=== PATIENT | female | born 1985 | race Native Hawaiian/Other Pacific Islander ===

== ENCOUNTER 2018-01-31 18:18 | Emergency (ER) | payer OTHER ==
[2018-01-31] MEDS ORDERED: Sodium Chloride 0.9% 1,000 ML IV ONE (19:52)
--- NOTE | 2018-01-31 19:52 | C.PDOC ---
History Of Present Illness Patient is a 32 y/o female, , who presents to the ED with a complaint of heavy vaginal bleeding and abdominal pain. Patient reports to have seen PMD for symptoms and was informed of miscarriage secondary to absent heart. Patient denies any fever or chills. Patient describes abdominal pain as severe abdominal cramping, 6/10. No other physical complaints at this time. Time Seen by Provider: 01/31/18 19:52 Chief Complaint (Nursing): Female Genitourinary History Per: Patient History/Exam Limitations: no limitations Onset/Duration Of Symptoms: Hrs Current Symptoms Are (Timing): Still Present Severity: Severe Pain Scale Rating Of: 6 Quality Of Discomfort: Cramping Associated Symptoms: Urinary Symptoms (heavy vaginal bleeding). denies: Fever, Chills Recent travel outside of the [place]: No Past Medical History Reviewed: Historical Data, Nursing Documentation, Vital Signs Vital Signs: Last Vital Signs Temp 98 F 01/31/18 18:20 Pulse 75 01/31/18 20:09 Resp 18 01/31/18 20:09 BP 114/71 01/31/18 20:09 Pulse Ox 100 01/31/18 22:29 - Medical History PMH: Anemia, Hypothyroidism Surgical History: No Surg Hx Family History: States: No Known Family Hx - Social History Hx Tobacco Use: No Hx Alcohol Use: No Hx Substance Use: No - Immunization History Hx Influenza Vaccination: No Review Of Systems Constitutional: Negative for: Fever, Chills Gastrointestinal: Positive for: Abdominal Pain (abdominal cramping) Genitourinary: Positive for: Vaginal Bleeding (heavy), Other () Musculoskeletal: Negative for: Back Pain Skin: Negative for: Rash Neurological: Negative for: Weakness Psych: Negative for: Anxiety Physical Exam - Physical Exam Appears: Non-toxic, No Acute Distress Skin: Warm, Dry Head: Normacephalic Eye(s): bilateral: Normal Inspection Oral Mucosa: Moist Neck: Supple Chest: Symmetrical Cardiovascular: Rhythm Regular, No Murmur Respiratory: No Accessory Muscle Use, No Rales, No Rhonchi, No Wheezing Gastrointestinal/Abdominal: Soft, Tenderness (suprapubic tenderness), No Distention, No Guarding, No Rebound Back: No CVA Tenderness Extremity: Normal ROM Neurological/Psych: Oriented x3, Normal Speech, Normal Cognition, Other (no focal deficits) Gait: Steady ED Course And Treatment - Laboratory Results Result Diagrams: 01/31/18 20:05 01/31/18 20:05 O2 Sat by Pulse Oximetry: 100 Pulse Ox Interpretation: Normal - CT Scan/US US Other Rad Studies (CT/US): Interpreted By Me, Read By Radiologist CT/US Interpretation: EXAM: US First Trimester, Transabdominal. US , Transvaginal. CLINICAL HISTORY: 32 years old, female; Signs and symptoms; Other: Vag bleed. TECHNIQUE: Real-time transabdominal and transvaginal obstetrical ultrasound of the maternal. pelvis and a first trimester with image documentation. Transvaginal imaging was used for. better evaluation of the fetus and adnexa. COMPARISON: No relevant prior studies available. FINDINGS: Beta-hCG level: Quantitative beta-hCG is 2714. Gestation: No intrauterine gestation is identified. Placenta/amniotic fluid: Cannot be adequately evaluated due to the early gestational age. Uterus/cervix : Unremarkable. No myometrial mass. Uterus measures 10.4 x 4.9 x 5.7 cm. Endometrial stripe measures 1.5 cm in thickness. Ovaries: Left ovary is not seen. 2.0 cm right ovarian follicle. Free fluid: Trace free fluid in the pelvis. IMPRESSION: No intrauterine gestation is identified. Findings may be due to spontaneous in progress. given physical signs of vaginal bleeding with clots. Ectopic cannot be excluded until a. viable intrauterine gestation is identified. Follow up recommended. Thank you for allowing us to participate in the care of your patient Progress Note: OB transvaginal US and blood work ordered. Morphine and IV fluids administered. Reevaluation Time: 22:30 Reassessment Condition: Improved Disposition Discussed With : Monik Mary Comment: will see the pt in office Counseled Patient/Family Regarding: Studies Performed, Diagnosis, Need For Followup, Rx Given - Disposition Referrals: Monik Mary MD [Staff Provider] - Disposition: HOME/ ROUTINE Disposition Time: 19:52 Condition: FAIR Prescriptions: Nitrofurantoin Macrocrystals [Macrobid] 1 cap PO BID #14 cap traMADol [Ultram] 50 mg PO QID PRN #20 tab PRN Reason: Pain, Severe (8-10) Instructions: Miscarriage Forms: [employer] (Swedish) - Clinical Impression Clinical Impression: Spontaneous - Scribe Statement The provider has reviewed the documentation as recorded by the Scribe Jenny Mcdermott All medical record entries made by the Scribe were at my direction and personally dictated by me. I have reviewed the chart and agree that the record accurately reflects my personal performance of the history, physical exam, medical decision making, and the department course for this patient. I have also personally directed, reviewed, and agree with the discharge instructions and disposition.
[2018-01-31] MEDS ORDERED: Sodium Chloride 0.9% 1,000 ML ONE (20:04)
[2018-01-31] MEDS ORDERED: Morphine 4 MG/ML VIAL ONE (20:04)
[2018-01-31 20:10] VITALS: RESP 18
[2018-01-31 20:10] LABS: BASO # 0.1 K/uL (0.0-0.2); BASO % 0.4 % (0.0-2.0); EOS # 0.1 K/uL (0.0-0.7); EOS % 1.3 % (0.0-4.0); HEMOGLOBIN 10.4 g/dL (11.0-16.0); LYMPH # 2.8 K/uL (1.0-4.3); LYMPH % 23.7 % (20.0-40.0); MEAN CELL VOLUME 72.2 fL (81.0-99.0); MEAN CORPUSCULAR HGB CONC 30.5 g/dL (33.0-37.0); MEAN PLATELET VOLUME 9.4 fL (7.2-11.7); MONO % 8.4 % (0.0-10.0); NEUT # 7.9 K/uL (1.8-7.0); NEUT % 66.2 % (50.0-75.0); RBC 4.71 Mil/uL (3.80-5.20); RED CELL DISTRIBUTION WIDTH 18.2 % (11.5-14.5)
[2018-01-31 20:19] LABS: SQUAMOUS EPITHIAL 1 /hpf (0-5); URINE BILIRUBIN NEGATIVE (NEGATIVE); URINE BLOOD 3+ (NEGATIVE); URINE CLARITY HAZY (Clear); URINE COLOR LIGHT RED (YELLOW); URINE GLUCOSE (UA) NORMAL (Normal); URINE LEUKOCYTE ESTERASE TRACE Leu/uL (Negative); URINE PROTEIN NEGATIVE (NEGATIVE); URINE UROBILINOGEN NORMAL mg/dL (0.2-1.0)
[2018-01-31 20:28] LABS: ALBUMIN 4.3 g/dL (3.5-5.0); ALT/SGPT 14 U/L (9-52); AST/SGOT 25 U/L (14-36); BLOOD UREA NITROGEN 5 mg/dL (7-17); CALCIUM 9.4 mg/dl (8.6-10.4); GFR AFRICAN-AMERICAN > 60; GFR NON-AFRICAN AMERICAN > 60
[2018-01-31 20:37] VITALS: O2SAT 100
[2018-01-31 22:46] VITALS: BP 104/67; PULSE 78; TEMP 98.3
--- NOTE | 2018-02-01 08:16 | US ---
HISTORY: vag bleed. LMP 11/19/2017 COMPARISON: None available. TECHNIQUE: Grayscale and color Doppler sonographic images were obtained of the pelvis utilizing transabdominal and transvaginal approach. FINDINGS: UTERUS: Anteverted and normal in size measuring 10.4 x 4.9 x 5.7 cm. ENDOMETRIUM: Normal in caliber endometrial stripe measures 1.5 cm. Mild vascularity noted of the endometrium. No intrauterine gestational sac identified. CERVIX: Heterogeneous hypoechoic material noted within the cervix. RIGHT OVARY: Measures 4.2 x 2.8 x 3.4 cm. 2 cm cyst noted. Normal flow. LEFT OVARY: Not visualized due to overlying bowel gas. FREE FLUID: Trace Pelvic free fluid, likely physiologic. OTHER FINDINGS: None. IMPRESSION: No intrauterine gestational sac identified. Findings may be due to too early to detect or missed . Ectopic cannot be excluded in the setting of a positive test and no intrauterine gestational sac. Recommend followup with serial beta HCG levels and pelvic ultrasound. Missed or in progress with possible retained products is also a diagnostic consideration given mild vascularity of the endometrium and heterogeneous material within the cervix, possibly blood clots. Right ovarian 2 cm cyst. Preliminary impression was provided by [facility]. Findings are concordant.
== END 2018-01-31 22:47 | disposition home or self-care (01) ==
LOC: C.ER 18:18
DX: O03.9 Complete or unspecified spontaneous abortion without complication (principal)
CPT/HCPCS: 76830; 76856; 80053; 81001; 84702; 85025; 86850; 86900; 96361; 96374; 99285; J2270; J7040